=== PATIENT | female | born 2000 | race Caucasian/White ===

== ENCOUNTER 2022-10-31 21:15 | Inpatient (IN) ==
--- NOTE | 2022-10-31 21:26 | Emergency Department Note ---
Impression & Plan Depression with suicidal ideation ED Provider Note NAME: BHASKAR CAIN AGE: 21 SEX: F : 2000 ARRIVES VIA: [employer] INFORMANT: Patient, ED PROVIDER(S): Patel Carrillo MD CHIEF COMPLAINT: Mental wellness concern MEDICAL DECISION MAKING: Patient presents due to concern for mental wellness concern. Blood work is o btained along with urinalysis urine drug screen, salicylate Tylenol and alcohol level. Patient was medically cleared seen and evaluated by psych caseworker protective services. Referrals were made and the patient was admitted to [facility]. Prior /Outside records reviewed: none Differential diagnosis: Mood disorder, infection, hypoglycemia, electrolyte abnormalities, cardiac sources, intracerebral event, toxicologic, trauma, neurologic, as well as other pathologies. HPI: Patient presents due to concern for mental wellness concern and was brought in by police. The patient had texted a friend stating that she had wanted to kill her self. The patient has had thoughts of trying to drown herself and has had attempted to try to the past. The patient did recently remove herself from the graduate program at [employer] [facility] [employer]. The patient has been increasingly depressed. No HI or AVH. Patient does not have any access to guns or weapons. The patient is from [place] graduated from [employer] and had been in a [employer] graduate program. Patient believes that being further from her family has made things difficult. PAST MEDICAL HISTORY: See Below PAST SURGICAL HISTORY: See Below SOCIAL HISTORY: See Below HOME MEDICATIONS: See Below ALLERGIES: See Below VITALS: See Below PHYSICAL EXAMINATION: GENERAL: Anxious in appearance but nontoxic. EYE EXAM: Normal conjunctiva. PERRL, no anisocoria and EOM's grossly intact w/o pain. NECK: Supple, no nuchal rigidity, no adenopathy, non-tender. No signs of meningismus. FROM of the neck with good chin to chest and neck extension. No stridor. LUNGS: Clear to auscultation. Normal chest wall mechanics. HEART: NSR, no MRG. ABDOMEN: Abdomen soft, non-tender, normo-active bowel sounds, no masses, no rebound or guarding. BACK: No CVA TTP. SKIN: No rashes and no bruising. UPPER EXTREMITIES: Upper extremities are grossly normal. LOWER EXTREMITIES: Grossly normal, no edema. NEURO EXAM: A&O x3, cranial nerves II-XII grossly intact, normal speech, moves all 4 extremities. Psych: Anxious, depressed, SI, negative HI or AVH. 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 Officer Psychiatry Required: No Beliefs That Will Affect Care: None Feels Safe at Home: Yes Gender Identity: Female Assistive Devices: None Allergies Allergies Allergy/AdvReac Type Severity Reaction Status Date / Time No Known Allergies Allergy Unverified 11/01/22 01:54 Home Meds Home Medications Medication Instructions Recorded Confirmed No Known Home Medications 11/01/22 11/01/22 Results & Data (ED) Vital Signs Vital Signs - 24 hr 10/31/22 21:34 Temperature 36.7 C Temperature Source Oral Pulse Rate 100 H Respiratory Rate 20 Respiratory Effort / Characteristics Non-Labored Respiratory Depth Normal Blood Pressure 140/100 Blood Pressure Mean 113 Sepsis Recent Fever Within 48 Hours No Sepsis New/Unexplained Change in Mental Status No Sepsis Action Taken by Nursing No Action Required Home Medications Current Medication List: was personally reviewed by me Laboratory Data Attestation: I reviewed the patient's lab results. 10/31/22 22:24 10/31/22 22:24 Lab Results 10/31/22 10/31/22 10/31/22 Range/Units 21:41 21:41 21:41 WBC (4.8-10.8) K/ul RBC (4.20-5.40) M/uL Hgb (12.0-16.0) g/dl Hct (37.0-47.0) % MCV (80.0-100.0) fL MCH (25.0-34.0) pg MCHC (32.0-36.0) g/dL RDW Std Deviation (36.4-46.3) fL RDW Coeff of Jose Antonio (11.5-14.5) % Plt Count (130-400) K/uL MPV (9.4-12.4) fL Immature Gran % (Auto) % Neut % (Auto) % Lymph % (Auto) % [place] % (Auto) % Eos % (Auto) % Baso % (Auto) % Neut # (Auto) (1.40-6.50) K/uL Lymph # (Auto) (1.2-3.4) K/uL [place] # (Auto) (0.11-0.59) K/uL Eos # (Auto) (0-0.50) K/uL Baso # (Auto) (0-0.2) K/uL Immature Gran # (Auto) (0.01-0.20) K/uL Sodium (136-145) mmol/L Potassium (3.5-5.1) mmol/L Chloride (98-107) mmol/L Carbon Dioxide (21-32) mmol/L Anion Gap (3-11) BUN (6-23) mg/dl Creatinine (0.6-1.2) mg/dl Est Cr Clr Drug Dosing ml/min Est GFR ( Amer) ml/min Est GFR (Non-Af Amer) ml/min BUN/Creatinine Ratio (10-20) Glucose (70-99(Fasting)) mg/dl Calcium (8.5-10.1) mg/dl Total Bilirubin (0.2-1.0) mg/dl AST (13-39) U/L ALT (7-52) U/L Alkaline Phosphatase (34-104) U/L Total Protein (6.0-8.3) gm/dl Albumin (3.4-5.0) gm/dl Globulin (2.5-4.0) gm/dl Albumin/Globulin Ratio (0.9-2) TSH (0.300-4.500) uIu/ml Urine Color Yellow Urine Appearance Clear (Clear) Urine pH 6.5 (4.5-7.5) Ur Specific [place] 1.016 (1.000-1.030) Urine Protein Negative (Negative) Urine Glucose (UA) Negative (Negative) Urine Ketones Trace H (Negative) Urine Blood 2+ H (Negative) Urine Nitrite Negative (Negative) Urine Bilirubin Negative (Negative) Urine Urobilinogen Negative (Negative) Ur Leukocyte Esterase Negative (Negative) Urine WBC (Auto) 1-5 (0-5) /hpf Urine RBC (Auto) 5-10 H (0-4) /hpf U Hyaline Cast (Auto) 1-5 (0-5) /lpf U Epithel Cells (Auto) >30 H (0-5) /lpf Urine Bacteria (Auto) Negative (Negative) Urine Test Negative (Negative) Salicylates (3.0-30) mg/dl Urine Opiates Screen Neg (Neg) Ur Methadone, Qual Neg (Neg) Acetaminophen (10-30) ug/ml Urine Barbiturates Neg (Neg) Ur Phencyclidine (PCP) Neg (Neg) U Amphetamin/Meth Scrn Neg (Neg) MDMA (Ecstasy) Screen Neg (Neg) U Benzodiazepines Scrn Neg (Neg) Ur Cocaine Metabolite Neg (Neg) U Marijuana (THC) Screen Neg (Neg) Ethyl Alcohol mg/dL (<10.0) mg/dl SARS-CoV-2, RNA, NAAT (NEGATIVE) 10/31/22 10/31/22 10/31/22 Range/Units 22:24 22:24 22:24 WBC 5.66 (4.8-10.8) K/ul RBC 4.73 (4.20-5.40) M/uL Hgb 12.9 (12.0-16.0) g/dl Hct 39.1 (37.0-47.0) % MCV 82.7 (80.0-100.0) fL MCH 27.3 (25.0-34.0) pg MCHC 33.0 (32.0-36.0) g/dL RDW Std Deviation 39.3 (36.4-46.3) fL RDW Coeff of Jose Antonio 13.1 (11.5-14.5) % Plt Count 329 (130-400) K/uL MPV 10.0 (9.4-12.4) fL Immature Gran % (Auto) 0.2 % Neut % (Auto) 56.1 % Lymph % (Auto) 35.3 % [place] % (Auto) 7.2 % Eos % (Auto) 0.7 % Baso % (Auto) 0.5 % Neut # (Auto) 3.17 (1.40-6.50) K/uL Lymph # (Auto) 2.00 (1.2-3.4) K/uL [place] # (Auto) 0.41 (0.11-0.59) K/uL Eos # (Auto) 0.04 (0-0.50) K/uL Baso # (Auto) 0.03 (0-0.2) K/uL Immature Gran # (Auto) 0.01 (0.01-0.20) K/uL Sodium 138 (136-145) mmol/L Potassium 4.4 (3.5-5.1) mmol/L Chloride 107 (98-107) mmol/L Carbon Dioxide 25 (21-32) mmol/L Anion Gap 6 (3-11) BUN 9 (6-23) mg/dl Creatinine 0.68 (0.6-1.2) mg/dl Est Cr Clr Drug Dosing 107.3 ml/min Est GFR ( Amer) 143.9 ml/min Est GFR (Non-Af Amer) 124.2 ml/min BUN/Creatinine Ratio 13.2 (10-20) Glucose 94 (70-99(Fasting)) mg/dl Calcium 9.5 (8.5-10.1) mg/dl Total Bilirubin 0.4 (0.2-1.0) mg/dl AST 13 (13-39) U/L ALT 9 (7-52) U/L Alkaline Phosphatase 52 (34-104) U/L Total Protein 7.7 (6.0-8.3) gm/dl Albumin 4.4 (3.4-5.0) gm/dl Globulin 3.3 (2.5-4.0) gm/dl Albumin/Globulin Ratio 1.3 (0.9-2) TSH 1.503 (0.300-4.500) uIu/ml Urine Color Urine Appearance (Clear) Urine pH (4.5-7.5) Ur Specific [place] (1.000-1.030) Urine Protein (Negative) Urine Glucose (UA) (Negative) Urine Ketones (Negative) Urine Blood (Negative) Urine Nitrite (Negative) Urine Bilirubin (Negative) Urine Urobilinogen (Negative) Ur Leukocyte Esterase (Negative) Urine WBC (Auto) (0-5) /hpf Urine RBC (Auto) (0-4) /hpf U Hyaline Cast (Auto) (0-5) /lpf U Epithel Cells (Auto) (0-5) /lpf Urine Bacteria (Auto) (Negative) Urine Test (Negative) Salicylates (3.0-30) mg/dl Urine Opiates Screen (Neg) Ur Methadone, Qual (Neg) Acetaminophen (10-30) ug/ml Urine Barbiturates (Neg) Ur Phencyclidine (PCP) (Neg) U Amphetamin/Meth Scrn (Neg) MDMA (Ecstasy) Screen (Neg) U Benzodiazepines Scrn (Neg) Ur Cocaine Metabolite (Neg) U Marijuana (THC) Screen (Neg) Ethyl Alcohol mg/dL (<10.0) mg/dl SARS-CoV-2, RNA, NAAT (NEGATIVE) 10/31/22 10/31/22 10/31/22 Range/Units 22:24 22:24 22:30 WBC (4.8-10.8) K/ul RBC (4.20-5.40) M/uL Hgb (12.0-16.0) g/dl Hct (37.0-47.0) % MCV (80.0-100.0) fL MCH (25.0-34.0) pg MCHC (32.0-36.0) g/dL RDW Std Deviation (36.4-46.3) fL RDW Coeff of Jose Antonio (11.5-14.5) % Plt Count (130-400) K/uL MPV (9.4-12.4) fL Immature Gran % (Auto) % Neut % (Auto) % Lymph % (Auto) % [place] % (Auto) % Eos % (Auto) % Baso % (Auto) % Neut # (Auto) (1.40-6.50) K/uL Lymph # (Auto) (1.2-3.4) K/uL [place] # (Auto) (0.11-0.59) K/uL Eos # (Auto) (0-0.50) K/uL Baso # (Auto) (0-0.2) K/uL Immature Gran # (Auto) (0.01-0.20) K/uL Sodium (136-145) mmol/L Potassium (3.5-5.1) mmol/L Chloride (98-107) mmol/L Carbon Dioxide (21-32) mmol/L Anion Gap (3-11) BUN (6-23) mg/dl Creatinine (0.6-1.2) mg/dl Est Cr Clr Drug Dosing ml/min Est GFR ( Amer) ml/min Est GFR (Non-Af Amer) ml/min BUN/Creatinine Ratio (10-20) Glucose (70-99(Fasting)) mg/dl Calcium (8.5-10.1) mg/dl Total Bilirubin (0.2-1.0) mg/dl AST (13-39) U/L ALT (7-52) U/L Alkaline Phosphatase (34-104) U/L Total Protein (6.0-8.3) gm/dl Albumin (3.4-5.0) gm/dl Globulin (2.5-4.0) gm/dl Albumin/Globulin Ratio (0.9-2) TSH (0.300-4.500) uIu/ml Urine Color Urine Appearance (Clear) Urine pH (4.5-7.5) Ur Specific [place] (1.000-1.030) Urine Protein (Negative) Urine Glucose (UA) (Negative) Urine Ketones (Negative) Urine Blood (Negative) Urine Nitrite (Negative) Urine Bilirubin (Negative) Urine Urobilinogen (Negative) Ur Leukocyte Esterase (Negative) Urine WBC (Auto) (0-5) /hpf Urine RBC (Auto) (0-4) /hpf U Hyaline Cast (Auto) (0-5) /lpf U Epithel Cells (Auto) (0-5) /lpf Urine Bacteria (Auto) (Negative) Urine Test (Negative) Salicylates < 3.0 L (3.0-30) mg/dl Urine Opiates Screen (Neg) Ur Methadone, Qual (Neg) Acetaminophen < 3 L (10-30) ug/ml Urine Barbiturates (Neg) Ur Phencyclidine (PCP) (Neg) U Amphetamin/Meth Scrn (Neg) MDMA (Ecstasy) Screen (Neg) U Benzodiazepines Scrn (Neg) Ur Cocaine Metabolite (Neg) U Marijuana (THC) Screen (Neg) Ethyl Alcohol mg/dL < 10.0 (<10.0) mg/dl SARS-CoV-2, RNA, NAAT NEGATIVE (NEGATIVE) Administered Medications Discontinued Medications Lorazepam (Lorazepam 1 Mg Tab) 1 mg PO NOW STA Stop: 11/01/22 00:13 Last Admin: 11/01/22 00:41 Dose: 1 mg Documented By: BACILIO Discharge Plan Visit Data Chief Complaint: Mental Health Evaluation ED Provider: Patel Crarillo Discharge Problem: Depression with suicidal ideation Patient Disposition: Admitted As Inpatient Discharge Instructions Interventions: ED Discharge Assessment Last Done: 11/01/22 00:22
[2022-10-31 21:58] LABS: Appearance Urine Clear (Clear); Bacteria Urine Automated Negative (Negative); Bilirubin Urine Negative (Negative); Blood Urine 2+ (Negative); Color Urine Yellow; Epithelial Cell Urine Auto >30 /lpf (0-5); Glucose Urine UA Negative (Negative); Ketones Urine Trace (Negative); Leukocyte Esterase Urine Negative (Negative); Nitrite Urine Negative (Negative); Protein Urine Negative (Negative); Specific Gravity Urine 1.016 (1.000-1.030); Urobilinogen Urine Negative (Negative); pH Urine 6.5 (4.5-7.5)
[2022-10-31 21:59] LABS: Pregnancy Test, Urine Negative (Negative)
[2022-10-31 22:27] LABS: Amphetamines+Metham, Urine Neg (Neg); Barbiturates, Urine Neg (Neg); Benzodiazepine, Urine Neg (Neg); Cocaine, Urine Neg (Neg); MDMA (Ecstacy), Urine Neg (Neg); Methadone, Urine Neg (Neg); Opiate, Urine Neg (Neg); Phencyclidine, Urine Neg (Neg)
[2022-10-31 22:45] LABS: Basophils # (auto) 0.03 K/uL (0-0.2); Basophils % (auto) 0.5 %; Eosinophils # (auto) 0.04 K/uL (0-0.50); Eosinophils % (auto) 0.7 %; Hematocrit (blood only) 39.1 % (37.0-47.0); Hemoglobin 12.9 g/dl (12.0-16.0); Immature Granulocytes # (auto) 0.01 K/uL (0.01-0.20); Immature Granulocytes % (auto) 0.2 %; Lymphocytes % (auto) 35.3 %; Mean Corpuscular Hemoglobin 27.3 pg (25.0-34.0); Mean Corpuscular Volume 82.7 fL (80.0-100.0); Monocytes # (auto) 0.41 K/uL (0.11-0.59); Monocytes % (auto) 7.2 %; Neutrophils # (auto) 3.17 K/uL (1.40-6.50); Neutrophils % (auto) 56.1 %; Platelet Count 329 K/uL (130-400); RDW Coefficient of Variation 13.1 % (11.5-14.5); RDW Standard Deviation 39.3 fL (36.4-46.3); Red Blood Count 4.73 M/uL (4.20-5.40); White Blood Count 5.66 K/ul (4.8-10.8)
[2022-10-31 23:00] LABS: Albumin Globulin Ratio 1.3 (0.9-2); Albumin Level 4.4 gm/dl (3.4-5.0); BUN Creatinine Ratio 13.2 (10-20); Bilirubin,Total 0.4 mg/dl (0.2-1.0); Calcium 9.5 mg/dl (8.5-10.1); Creatinine Clr Calc Pharmacy 107.3 ml/min; Est GFR (African American) 143.9 ml/min; Est GFR (Non-African American) 124.2 ml/min; Globulin 3.3 gm/dl (2.5-4.0); Potassium 4.4 mmol/L (3.5-5.1); Total Protein 7.7 gm/dl (6.0-8.3)
[2022-10-31 23:08] LABS: Acetaminophen < 3 ug/ml (10-30); Salicylate < 3.0 mg/dl (3.0-30)
[2022-11-01] MEDS ORDERED: LORazepam 1 MG TAB PO STA (00:12)
[2022-11-01] MEDS ORDERED: MAGNESIUM HYDROXIDE SUSP 30 ML UDC PO PRN (00:22)
[2022-11-01] MEDS ORDERED: hydrOXYzine HCl 25 MG TAB PO PRN ×2 (00:22)
[2022-11-01] MEDS ORDERED: ACETAMINOPHEN 325 MG TAB PO PRN (00:22)
[2022-11-01] MEDS ORDERED: BISMUTH SUBSALICYLATE LIQD 236 ML PO PRN (00:22)
[2022-11-01] MEDS ORDERED: SODIUM CHLORIDE 0.65% NA SOLN 45 ML (OCEAN) PRN (00:22)
[2022-11-01] MEDS ORDERED: ALUMINUM/MAGNESIUM SUSP 30 ML UDC PO PRN (00:22)
--- NOTE | 2022-11-01 00:43 | Emergency Department Note ---
ED Visit Note Patient is a 19-year-old female who was seen and evaluated by Dr. Carrillo and medically cleared. She was accepted on the 201 to [facility]. with suicidal ideations without a clear plan. .
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
[2022-11-01 13:18] LABS: Vitamin D, 25 Hydrox 21.4 ng/ml (30-100)
[2022-11-02] MEDS ORDERED: DULoxetine HCL 20 MG CAP PO SCH (09:00)
--- NOTE | 2022-11-02 11:26 | Psychiatric Progress Note ---
Date of Service November 02, 2022 Impression / Recommendations Impression 11/02/2022: "Less suicidal today" but overall "not feeling much different". Remains sad, hopeless, very anxious. Had initial insomnia last night for which she received hydroxyzine 50 mg and thinks that helped. She's been somewhat hesitant to use hydroxyzine for anxiety. Reviewed low vitamin D level and the need to address that, as well as specific treatment approach. Discussed her plans following discharge. She hopes to leave the day after tomorrow, which might be insufficient time to do the planned medication titration even aggressively. Pt reports no issues thus far tolerating duloxetine 20 mg (though she only got it about 2 hours ago). She would like to plan to increase to 40 mg tomorrow. 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 She is overwhelmed and has worsening intrusive thoughts of drowning herself. She is currently unstable and requires hospitalization for stabilization, medication assessment, and safety. (1) Major depressive disorder, recurrent, severe without psychotic features: Present on Admission?: Yes (2) Panic disorder: Present on Admission?: Yes (3) Social anxiety disorder: Present on Admission?: Yes (1) Major depressive disorder, recurrent, severe without psychotic features: Present on Admission?: Yes (2) Panic disorder: Present on Admission?: Yes (3) Social anxiety disorder: Present on Admission?: Yes (4) Vitamin D deficiency: Present on Admission?: Yes Plan 11/02/2022: * continue trial of duloxetine 20 mg today with plan to titrate to 40 mg tomorrow then to 60 mg * start ergocalciferol 50,000 IU twice weekly x 4 weeks then cholecalciferol 2,000 IU daily 11/01/2022: * The patient was admitted to the [facility] ([facility] mental [facility] unit) on q15 min checks (behavioral with suicide precautions) for safety. The patient will participate in group, recreational, and milieu therapies and will be offered additional individual and family sessions as clinically appropriate. * additional lab: 25-OH Vitamin D, B12, folic acid * trial of duloxetine 20 mg with plan to titrate to 60 mg Inventory Assets Strengths: supportive relationships, willing to get treatment, good insight, intelligent Needs: safety and stabilization medication adjustment additional coping skills inc reased outpatient services Suicide Risk Level Suicide Risk Level: Moderate (q15 min suicide checks) Suicide Risk Level Comments: has ongoing suicidal thoughts with a plan that is not accessible here, says she feels safe in this environment and is able to contract for safety Risk Factors Assessment Male: No : Yes Do You Have Access To A Gun?: No Health Problems: No Mental Health Diagnoses: Yes Substance Use Disorders: No Previous Attempt: Yes Family History of Suicide: No Previous Psychiatric Hospitalization: No Hopelessness: Yes Protective Factors Assessment : No Responsible for Young Children: No Employed: Yes ([employer] - started yesterday) Stable Relationships: Yes Supportive Family: Yes (sister, not parents) Interval History Identifying Information BHASKAR CAIN is a 21-year-old F who currently lives in an appartment with 4 roommates, has a history of MDD and KELSY, and was admitted on 11/01/22 00:22 on a 201 voluntary commitment for suicidal thoughts. Chief Complaint "Nothing's very different, but I guess I'm less suicidal". Review of Systems Sleep Information Total Hours of Sleep: 5.5 Sleep Comments: Received Vistaril for difficulty falling asleep Meal Information Percent Meal Consumed - Breakfast: 0 Percent Meal Consumed - Lunch: 80 Percent Meal Consumed - Dinner: 100 Subjective Subjective Patient was seen & assessed and interval progress reviewed with nursing and social work. For narrative detail, see Impression. Physical Exam Psychiatric Orientation: alert, oriented to person, oriented to place, oriented to time and cooperative Apperance: appropriately dressed and + disheveled Eye Contact: + fair eye contact Motor Behavior: + psychomotor retardation Speech: normal rate/rhythm/volume of speech Affect: + tearful affect Mood: + depressed mood and + anxious mood Thought Process: goal directed thought process, linear/logical thought process and clear/coherent thought process Thought Content: + cognitive distortions, + hopelessness, + loneliness and + self deprecation Suicidal Thoughts: denies suicidal plan and denies suicidal intent; + reports suicidal thoughts Homicidal Thoughts: denies homicidal thoughts Hallucinations: no auditory hallucinations and no visual hallucinations Cognition: recent memory grossly intact, remote memory grossly intact, attention grossly intact and language grossly intact Estimated Intelligence: + above average estimated intelligence Insight: good insight Judgment: good judgement Vital Signs (Past 24 Hours) Last Vital Signs Temp 36.5 C 11/02/22 06:36 Pulse 97 H 11/02/22 06:36 Resp 18 11/02/22 06:36 BP 104/71 11/02/22 06:38 Pulse Ox 98 11/01/22 01:14 O2 Del Method Room Air 11/01/22 01:14 Results & Data ([facility]) Laboratory Results Laboratory Results - last 24 hr 11/01/22 12:11 Vitamin B12 520 25-OH Vitamin D Total 21.4 L Folate 20.57 Current Inpatient Medications Current Inpatient Medications: Current Inpatient Medications Acetaminophen (Acetaminophen 325 Mg Tab) 650 mg PO Q4H PRN PRN Reason: Headache or Minor Fever Stop: 12/01/22 00:21 Al Hydrox/Mg Hydrox/Simethicone (Aluminum/Magnesium Susp 30 Ml Udc) 30 ml PO Q4H PRN PRN Reason: GI Upset Stop: 12/01/22 00:21 Bismuth Subsalicylate (Bismuth Subsalicylate Liqd 236 Ml) 15 ml PO PRN PRN PRN Reason: Loose Stool Stop: 12/01/22 00:21 Duloxetine HCl (Duloxetine Hcl 20 Mg Cap) 20 mg PO QAM LACY Stop: 12/02/22 08:59 Last Admin: 11/02/22 08:51 Dose: 20 mg Hydroxyzine HCl (Hydroxyzine Hcl 25 Mg Tab) 50 mg PO HSZ PRN PRN Reason: Insomnia Stop: 12/01/22 00:21 Last Admin: 11/02/22 00:09 Dose: 50 mg Hydroxyzine HCl (Hydroxyzine Hcl 25 Mg Tab) 25 mg PO Q4H PRN PRN Reason: Anxiety Stop: 12/01/22 00:21 Magnesium Hydroxide (Magnesium Hydroxide Susp 30 Ml Udc) 30 ml PO DAILY PRN PRN Reason: Constipation Stop: 12/01/22 00:21 Sodium Chloride (Sodium Chloride 0.65% Na Soln 45 Ml ([place])) 1 - 2 sprays NA PRN PRN PRN Reason: Nasal Dryness/Congestion Stop: 12/01/22 00:21 Mental Health & Subst Abuse Tx Therapist Name of Therapist: None Flanging Operator Name of Flanging Operator: None E&M Selection based on Time Time Spent Minutes Spent on Pre-Visit Items: 13 (multidisciplinary treatment team meeting, review of record, including reading nursing and social work notes, review of diagnostic test results, coordination of care) Minutes Spent During Visit: 27 (interview, review of test findings with the patient, medication education, supportive psychotherapy using cognitive-behavio ral tools including addressing cognitive distortions) Minutes Spent Post-Visit: 13 (documentation, communication with relevant members of the treatment team) Total Minutes Spent: 53
[2022-11-03] MEDS ORDERED: DULoxetine HCL 20 MG CAP PO SCH (09:00)
--- NOTE | 2022-11-03 12:06 | Psychiatric Progress Note ---
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 She is currently unstable and requires hospitalization for stabilization, medication assessment, and safety. 11/03/2022: Reviewed interim progress as documented by Dr. Odom. Today she reports some significant improvements in mood and anxiety related to feeling well supported by her siblings and friends as well as feeling better able to c hallenge cognitive distortions related to her recent withdrawal from graduate school. Future-oriented about moving back to [place] and enrolling at [employer] for fall 2022 and thinking about how to communicate with her new job at [employer] that she will be moving. Some fatigue that she attributes to duloxetine, discussed typically this is more activating but option to switch to HS dosing if symptoms persist after next 5-7 days. Willing to do IOP. Family meeting with her sister this afternoon. (1) Major depressive disorder, recurrent, severe without psychotic features: (2) Panic disorder: (3) Social anxiety disorder: (4) Vitamin D deficiency: Plan 11/03/2022: Continue duloxetine 40mg daily, she prefers to remain at this dose for now. 11/02/2022: * continue trial of duloxetine 20 mg today with plan to titrate to 40 mg tomorrow then to 60 mg * start ergocalciferol 50,000 IU twice weekly x 4 weeks then cholecalciferol 2,000 IU daily 11/01/2022: * The patient was admitted to the [facility]) on q15 min checks (behavioral with suicide precautions) for safety. The patient will participate in group, recreational, and milieu therapies and will be offered additional individual and family sessions as clinically appropriate. * additional lab: 25-OH Vitamin D, B12, folic acid * trial of duloxetine 20 mg with plan to titrate to 60 mg Inventory Assets Strengths: supportive relationships, willing to get treatment, good insight, intelligent Needs: safety and stabilization medication adjustment additional coping skills increased outpatient services Suicide Risk Level Suicide Risk Level: Moderate (q15 min suicide checks) (denies current SI but with SI with plan and depression prior to admission, feels safe here and agrees to let nursing know if she is unable to remain safe ) Risk Factors Assessment Male: No : Yes Do You Have Access To A Gun?: No Health Problems: No Mental Health Diagnoses: Yes Substance Use Disorders: No Previous Attempt: Yes Family History of Suicide: No Previous Psychiatric Hospitalization: No Hopelessness: Yes Protective Factors Assessment : No Responsible for Young Children: No Employed: Yes ([employer] - started yesterday) Stable Relationships: Yes Supportive Family: Yes (sister, not parents) Interval History Identifying Information BHASKAR CAIN is a 21-year-old F who currently lives in an appartment with 4 roommates, has a history of MDD and KELSY, and was admitted on 11/01/22 00:22 on a 201 voluntary commitment for suicidal thoughts. Chief Complaint "I know I need to tell myself "I'm not a failure"". Review of Systems Sleep Information Total Hours of Sleep: 8 Sleep Comments: Meal Information Percent Meal Consumed - Breakfast: 100 Percent Meal Consumed - Lunch: 100 Percent Meal Consumed - Dinner: 100 Subjective Subjective Patient was seen & assessed and interval progress reviewed with treatment team nursing and social work. Bhaskar feels her mood is starting to improve as she processes what it means that she withdrew from graduate school and getting support from her siblings and friends. Discussed how initially she felt like a failure for changing her mind about chosen graduate program (she wants to do something more focused on counseling or clinical psychology and [employer] program was very research and education focused). Reviewed how she is starting to challenge cognitive distortions related to this and focusing on strength and courage with changing her initial graduate school plans to find a program that better suits her needs. She feels her SI emerged due to severe panic attack while at her job on Saturday. Denies SI since that time. 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 Feeling some fatigue from duloxetine but no other side effects. She prefers to stay at 40mg dose for a few weeks to see if fatigue improves before increasing to 60mg. Reviewed option for Vistaril for panic attacks/anxiety, she feels anxiety is much better since coming to the hospital. Used Vistaril at for insomnia and found this helpful without any side effects. Discussed option to consider switching duloxetine to HS if sedation/fatigue persists. Physical Exam Psychiatric Orientation: alert, oriented x 3 and cooperative Apperance: appropriately dressed and appropriately groomed Eye Contact: good eye contact Motor Behavior: no abnormal motor movements Speech: normal rate/rhythm/volume of speech Affect: + anxious affect (but with laughs and smiles appropriately at times) Mood: + depressed mood and + anxious mood Thought Process: goal directed thought process, linear/logical thought process and clear/coherent thought process Thought Content: + cognitive distortions and reality based without delusions Suicidal Thoughts: denies suicidal thoughts, denies suicidal plan and denies suicidal intent Homicidal Thoughts: denies homicidal thoughts Hallucinations: no auditory hallucinations and no visual hallucinations Cognition: recent memory grossly intact, remote memory grossly intact, attention grossly intact and language grossly intact Estimated Intelligence: + above average estimated intelligence Insight: good insight Judgment: good judgement Vital Signs (Past 24 Hours) Last Vital Signs Temp 36.9 C 11/03/22 06:00 Pulse 99 H 11/03/22 06:00 Resp 18 11/03/22 06:00 BP 109/73 11/03/22 06:00 Pulse Ox 97 11/03/22 06:00 O2 Del Method Room Air 11/03/22 06:00 Results & Data (U) Current Inpatient Medications Current Inpatient Medications: Current Inpatient Medications Acetaminophen (Acetaminophen 325 Mg Tab) 650 mg PO Q4H PRN PRN Reason: Headache or Minor Fever Stop: 12/01/22 00:21 Al Hydrox/Mg Hydrox/Simethicone (Aluminum/Magnesium Susp 30 Ml Udc) 30 ml PO Q4H PRN PRN Reason: GI Upset Stop: 12/01/22 00:21 Bismuth Subsalicylate (Bismuth Subsalicylate Liqd 236 Ml) 15 ml PO PRN PRN PRN Reason: Loose Stool Stop: 12/01/22 00:21 Duloxetine HCl (Duloxetine Hcl 20 Mg Cap) 40 mg PO QAM LACY Stop: 12/03/22 08:59 Last Admin: 11/03/22 09:04 Dose: 40 mg Hydroxyzine HCl (Hydroxyzine Hcl 25 Mg Tab) 50 mg PO HSZ PRN PRN Reason: Insomnia Stop: 12/01/22 00:21 Last Admin: 11/02/22 00:09 Dose: 50 mg Hydroxyzine HCl (Hydroxyzine Hcl 25 Mg Tab) 25 mg PO Q4H PRN PRN Reason: Anxiety Stop: 12/01/22 00:21 Magnesium Hydroxide (Magnesium Hydroxide Susp 30 Ml Udc) 30 ml PO DAILY PRN PRN Reason: Constipation Stop: 12/01/22 00:21 Sodium Chloride (Sodium Chloride 0.65% Na Soln 45 Ml ([place])) 1 - 2 sprays NA PRN PRN PRN Reason: Nasal Dryness/Congestion Stop: 12/01/22 00:21 Mental Health & Subst Abuse Tx Psychiatrist Name of Psychiatrist: [facility] Psychiatrist's Psychiatric Appointment Comment: Please check email to confirm follow-up times Therapist Name of Therapist: [facility] Therapist's Therapy Appointment Comment: Please check email to confirm follow-up times Newspaper Stuffer Name of Newspaper Stuffer: Kyung
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
[2022-11-04] MEDS ORDERED: DULoxetine HCL 20 MG CAP PO SCH (21:00)
== END 2022-11-04 12:08 | disposition home or self-care (01) | DRG 885 ==
LOC: ED 21:15 → 3S 11-01 00:22 → SUATTDRO 11-01 00:22
DX: F33.2 Major depressive disorder, recurrent severe without psychotic features; E55.9 Vitamin D deficiency, unspecified; F41.0 Panic disorder [episodic paroxysmal anxiety]; F40.10 Social phobia, unspecified